=== PATIENT | female | born 1980 | race Caucasian/White ===

== ENCOUNTER 2018-06-07 01:01 | Emergency (ER) | payer SELFPAY ==
[~2018-06-07] VITALS: Ht 177.8 cm; Wt 82.1 kg
[2018-06-07 01:11] VITALS: Ht 177.8 cm; Wt 82.1 kg
[2018-06-07 02:00] VITALS: BP 123/76
== END 2018-06-07 02:10 | disposition home or self-care (01) ==
LOC: ED 01:01
DX: K04.7 Periapical abscess without sinus (principal); Z88.5 Allergy status to narcotic agent

== ENCOUNTER 2018-11-18 20:50 | Emergency (ER) | payer BC ==
[~2018-11-18] VITALS: Ht 160 cm; Wt 79.4 kg
[2018-11-18 21:03] VITALS: Ht 160 cm; Wt 79.4 kg
[2018-11-18 23:04] VITALS: BP 135/62
== END 2018-11-18 23:04 | disposition home or self-care (01) ==
LOC: ED 20:50
DX: S83.91XA Sprain of unspecified site of right knee, initial encounter (principal); M25.461 Effusion, right knee; X50.3XXA Overexertion from repetitive movements, initial encounter; Y93.89 Activity, other specified; Y92.89 Other specified places as the place of occurrence of the external cause; Y99.8 Other external cause status; Z88.5 Allergy status to narcotic agent
CPT/HCPCS: Q0092

== ENCOUNTER 2018-11-26 21:11 | Emergency (ER) | payer BC ==
[~2018-11-26] VITALS: Ht 160 cm; Wt 80.7 kg
[2018-11-26 21:14] VITALS: Ht 160 cm; Wt 80.7 kg
[2018-11-26 21:57] LABS: URIC ACID 3.4 mg/dL (2.6-6.0)
[2018-11-26 22:08] LABS: C REACTIVE PROTEIN < 0.2 mg/dL (<=0.9)
[2018-11-26 22:38] VITALS: BP 129/78
== END 2018-11-26 22:39 | disposition home or self-care (01) ==
LOC: ED 21:11
PROVIDERS: Emergency Medicine
DX: M25.561 Pain in right knee (principal); G89.29 Other chronic pain; Z88.5 Allergy status to narcotic agent
CPT/HCPCS: J1885; Q0092

== ENCOUNTER 2019-03-18 21:56 | Emergency (ER) | payer BC ==
[~2019-03-18] VITALS: Ht 157.5 cm; Wt 83.9 kg
[2019-03-18 22:17] VITALS: BP 124/75; Ht 157.5 cm; Wt 83.9 kg
== END 2019-03-19 02:32 | disposition left against medical advice (07) ==
LOC: ED 21:56
DX: Z53.21 Procedure and treatment not carried out due to patient leaving prior to being seen by health care provider (principal)